=== PATIENT | female | born 1990 | race Caucasian/White ===

== ENCOUNTER 2022-12-22 08:50 | Inpatient (IN) | payer BC ==
[2022-12-22] MEDS: ELECTROLYTE-148 SOLN 1,000 ML IV SCH ×2 (09:20→15:45)
[2022-12-22 10:26] LABS: BASO % 0.5 % (0-2.0); EOS % 0.5 % (0-4.5); HEMATOCRIT 34.5 % (32.4-45.2); HEMOGLOBIN 12.1 GM/dL (10.7-15.3); LYMPH % 14.5 % (8-40); MCH 30.6 pg (25.7-33.7); MCHC 35.2 g/dl (32.0-36.0); MEAN CELL VOLUME 86.9 fl (80-96); MONO % 6.7 % (3.8-10.2); NEUT % 77.8 % (42.8-82.8); PLATELET COUNT 200 10^3/uL (134-434); RBC 3.97 M/mm3 (3.60-5.2); WHITE BLOOD COUNT 9.4 K/mm3 (4.0-10.0)
[2022-12-22 10:30] LABS: INR 0.97 (0.83-1.09); PROTHROMBIN TIME (PATIENT) 11.3 SEC (9.7-13.0)
[2022-12-22 10:32] LABS: ACTIVATED PTT 27.8 SECONDS (25.2-36.5)
[2022-12-22 10:33] VITALS: BMI 23.9
[2022-12-22 10:46] LABS: POTASSIUM 3.8 mmol/L (3.5-5.1)
[2022-12-22 10:48] LABS: BLOOD UREA NITROGEN 5.6 mg/dL (7-18)
[2022-12-22 10:51] LABS: CREATININE 0.5 mg/dL (0.55-1.3)
[2022-12-22 14:27] LABS: POC NITRAZINE POS
[2022-12-22] MEDS ORDERED: ONDANSETRON 4 MG/2 ML VIAL ONE (15:02)
[2022-12-22] MEDS ORDERED: ONDANSETRON 4 MG/2 ML VIAL IVPB ONE (15:15)
[2022-12-22] MEDS ORDERED: FENTANYL/BUPIVACAINE/NS/PF - PCEA - 50 ML DISP.SYRIN EP ONE ×2 (17:05→21:35)
[2022-12-22] MEDS ORDERED: NALOXONE HCL 0.4 MG/ML VIAL IVPUSH PRN (17:10)
[2022-12-22] MEDS ORDERED: FENTANYL CITRATE/PF 50 MCG/ML VIAL ONE ×2 (17:18→22:02)
[2022-12-22] MEDS: FENTANYL/BUPIVACAINE/NS/PF - PCEA - 50 ML DISP.SYRIN EP SCH ×2 (17:30→21:35)
[2022-12-22] MEDS ORDERED: OXYTOCIN 30 UNITS in 0.9% NS 30 UNIT/500 ML INFUS.BAG IVPB SCH (18:15)
[2022-12-22] MEDS ORDERED: OXYTOCIN 20 UNITS in 0.9% NS 20 UNIT/1,000 ML INFUS.BAG IV ONE (23:55)
[2022-12-22] MEDS ORDERED: LIDOCAINE HCL 1% PRESERVATIVE FREE - 30ML VIAL ONE (23:55)
[2022-12-23] MEDS ORDERED: ACETAMINOPHEN 325 MG TABLET (FP) PO PRN (02:10)
[2022-12-23] MEDS ORDERED: METHYLERGONOVINE MALEATE 0.2 MG/1 ML AMP IM PRN (02:10)
[2022-12-23] MEDS ORDERED: oxyCODONE HCL 5 MG TABLET PO PRN (02:10)
[2022-12-23] MEDS ORDERED: BISACODYL 10 MG SUPP.RECT RC PRN (02:10)
[2022-12-23] MEDS ORDERED: BENZOCAINE 28 GM HEMORRHOIDAL OINTMENT TP PRN (02:10)
[2022-12-23] MEDS ORDERED: WITCH HAZEL 50% (TUCKS) 40 PAD/JAR PAD TP PRN (02:10)
[2022-12-23] MEDS ORDERED: BENZOCAINE 20% 57 GM BOTTLE TP PRN (02:10)
[2022-12-23] MEDS ORDERED: OXYTOCIN 20 UNITS in 0.9% NS 20 UNIT/1,000 ML INFUS.BAG IV SCH (02:15)
[2022-12-23 02:26] LABS: CORD BASE EXCESS -7.4 mmol/L (0-2); CORD PCO2 41.7 mmHg (30-78); CORD pH 7.277 (7.14-7.44)
[2022-12-23 02:29] LABS: CORD BASE EXCESS -10.3 mmol/L (0-2); CORD HCO3 18.7 mmHg (20-29); CORD PCO2 52.5 mmHg (30-78); CORD pH 7.169 (7.14-7.44)
[2022-12-23] MEDS: IBUPROFEN 600 MG TABLET (FP) PO PRN ×2 (09:50→21:47)
[2022-12-23] MEDS: PRENATAL VITAMINS W/ FOLIC ACID TABLET (FP) PO SCH (09:50)
[2022-12-24] MEDS: IBUPROFEN 600 MG TABLET (FP) PO PRN ×3 (06:15→21:31)
[2022-12-24 08:18] LABS: BASO % 0.2 % (0-2.0); EOS % 2.1 % (0-4.5); HEMATOCRIT 31.5 % (32.4-45.2); HEMOGLOBIN 10.8 GM/dL (10.7-15.3); LYMPH % 16.9 % (8-40); MCH 30.1 pg (25.7-33.7); MCHC 34.2 g/dl (32.0-36.0); MEAN CELL VOLUME 87.9 fl (80-96); MEAN PLT VOLUME 9.8 fl (7.5-11.1); MONO % 6.9 % (3.8-10.2); NEUT % 73.9 % (42.8-82.8); PLATELET COUNT 193 10^3/uL (134-434); RBC 3.59 M/mm3 (3.60-5.2); RDW 14.2 % (11.6-15.6); WHITE BLOOD COUNT 10.8 K/mm3 (4.0-10.0)
[2022-12-24 10:08] VITALS: RESP 18
[2022-12-24] MEDS: PRENATAL VITAMINS W/ FOLIC ACID TABLET (FP) PO SCH (10:57)
[2022-12-24] MEDS ORDERED: SENNOSIDES/DOCUSATE COMBO (SENNA PLUS) TABLET (UD) PO PRN (22:00)
[2022-12-25] MEDS: IBUPROFEN 600 MG TABLET (FP) PO PRN (09:16)
[2022-12-25] MEDS: PRENATAL VITAMINS W/ FOLIC ACID TABLET (FP) PO SCH (09:16)
[2022-12-25 14:18] VITALS: BP 134/88; PULSE 68; TEMP 97.8
== END 2022-12-25 13:55 | disposition home or self-care (01) | DRG 807 ==
LOC: JLDR 08:50 → J3W 12-23 04:51
PROVIDERS: ADMIT Obstetrics & Gynecology; ATTEND Obstetrics & Gynecology
PROC: 0HQ9XZZ Repair Perineum Skin, External Approach (ICD-10-PCS; principal; 2022-12-23)
PROC: 10E0XZZ Delivery of Products of Conception, External Approach (ICD-10-PCS; 2022-12-23)
DX: O70.0 First degree perineal laceration during delivery (principal); Z37.0 Single live birth; O99.02 Anemia complicating childbirth; D64.9 Anemia, unspecified; Z3A.40 40 weeks gestation of pregnancy
CPT/HCPCS: 36415; 36600; 80048; 82803; 83986-QW; 85025; 85461; 85610; 85730; 86780; 86850; 86870; 86900; 86901; 86902; J2790

== ENCOUNTER 2023-07-28 15:27 | Emergency (ER) | payer BC ==
[2023-07-28] MEDS ORDERED: SODIUM CHLORIDE 0.9% 500 ML INFUS.BAG IV ONE ×2 (15:44→16:51)
[2023-07-28 16:13] VITALS: BP 132/72; PULSE 76; RESP 18; TEMP 98.3; BMI 22.1
[2023-07-28 16:34] LABS: HEMATOCRIT 41.5 % (32.4-45.2); MCH 29.8 pg (25.7-33.7); MCHC 33.8 g/dl (32.0-36.0); MEAN CELL VOLUME 88.2 fl (80-96); MEAN PLT VOLUME 8.7 fl (7.5-11.1); RBC 4.71 10^6/uL (3.60-5.2); RDW 14.6 % (11.6-15.6); WHITE BLOOD COUNT 7.5 10^3/uL (4.0-10.8)
[2023-07-28 16:59] LABS: PLATELET ESTIMATE ADEQUATE
[2023-07-28 17:00] LABS: ALBUMIN 4.3 g/dl (3.4-5.0); BILIRUBIN,TOTAL 0.8 mg/dl (0.2-1); CREATININE 0.7 mg/dl (0.6-1.3); POTASSIUM 4.5 mmol/L (3.5-5.1); TOT PROT 6.5 g/dl (6.4-8.2)
== END 2023-07-28 18:00 | disposition home or self-care (01) ==
LOC: FER 15:27
DX: R11.2 Nausea with vomiting, unspecified (principal); R19.7 Diarrhea, unspecified; Z20.822 Contact with and (suspected) exposure to COVID-19
CPT/HCPCS: 0241U-QW; 36415; 80053; 81025; 85027; 99284-25